=== PATIENT | male | born 1995 | race Caucasian/White ===

== ENCOUNTER 2017-07-14 18:53 | Emergency (ER) | payer OTHER ==
[2017-07-14] MEDS ORDERED: ONDANSETRON 4 MG/2 ML VIAL IVP ONE (19:49)
[2017-07-14] MEDS ORDERED: NS 1,000 ML IV ONE (19:50)
--- NOTE | 2017-07-14 20:04 | EDPHY ---
H & P Stated Complaint: N/V, ear ache. Time Seen by Provider: 07/14/17 19:53 HPI/ROS: CHIEF COMPLAINT: Nausea vomiting anxiety HISTORY OF PRESENT ILLNESS: Patient is a 21-year-old man who was driving down from [place] when he felt some pressure in his left ear and became dizzy and nauseous and vomited several times. He states that he thinks he was having anxiety that was causing his nausea. States that he vomited and had dry heaves constantly for 40 min. It then stopped. He does do marijuana daily but does not think this is contributing. He denies other drugs. He has not been on any medications. No fever. No sick contacts. No suspicious food. No abdominal pain. No diarrhea. REVIEW OF SYSTEMS: Constitutional: denies: chills, fever, recent illness, recent injury EENTM: See HPI denies: blurred vision, double vision Respiratory: denies: cough, shortness of breath Cardiac: denies: chest pain, irregular heart rate, lightheadedness, palpitations Gastrointestinal/Abdominal: See HPI Genitourinary: denies: dysuria, frequency, hematuria, pain Musculoskeletal: denies: joint pain, muscle pain Skin: denies: lesions, rash, jaundice, bruising Neurological: denies: headache, numbness, paresthesia, tingling, dizziness, weakness Hematologic/Lymphatic: denies: blood clots, easy bleeding, easy bruising Immunologic/allergic: denies: HIV/AIDS, transplant EXAM: GENERAL: Well-appearing, well-nourished and in no acute distress. HEAD: Atraumatic, normocephalic. EYES: Pupils equal round and reactive to light, extraocular movements intact, sclera anicteric, conjunctiva are normal. ENT: TMs with mild effusion, no erythema, nares patent, oropharynx clear without exudates. Moist mucous membranes. NECK: Normal range of motion, supple without lymphadenopathy or JVD. LUNGS: Breath sounds clear to auscultation bilaterally and equal. No wheezes rales or rhonchi. HEART: Regular rate and rhythm without murmurs, rubs or gallops. ABDOMEN: Soft, nontender, normoactive bowel sounds. No guarding, no rebound. No masses appreciated. BACK: No CVA tenderness, no spinal tenderness, step-offs or deformities EXTREMITIES: Normal range of motion, no pitting or edema. No clubbing or cyanosis. NEUROLOGICAL: Cranial nerves II through XII grossly intact. Normal speech, normal gait. 5/5 strength, normal movement in all extremities, normal sensation PSYCH: Normal mood, normal affect. SKIN: Warm, dry, normal turgor, no visible rashes or lesions. Source: Patient Exam Limitations: No limitations - Personal History Current Tetanus/Diphtheria Vaccine: Yes Current Tetanus Diphtheria and Acellular Pertussis (TDAP): Yes - Medical/Surgical History Hx Asthma: Yes Hx Chronic Respiratory Disease: No Hx Diabetes: No Hx Cardiac Disease: No Hx Renal Disease: No Hx Cirrhosis: No Hx Alcoholism: No Hx HIV/AIDS: No Hx Splenectomy or Spleen Trauma: No Other PMH: Asthma - Family History Significant Family History: No pertinent family hx - Social History Smoking Status: Never smoked Alcohol Use: Sober Drug Use: Marijuana Constitutional: Initial Vital Signs Temperature (C) 36.3 C 07/14/17 19:19 Heart Rate 57 L 07/14/17 19:19 Respiratory Rate 15 07/14/17 19:19 Blood Pressure 118/73 07/14/17 19:19 O2 Sat (%) 98 07/14/17 19:19 O2 Delivery Mode Room Air Allergies/Adverse Reactions: No Known Allergies Allergy (Unverified 07/14/17 19:23) Home Medications: Medication Instructions Recorded Adderall 10 mg Tablet 07/14/17 Ondansetron Odt [Zofran Odt 4 mg 4 mg PO Q4 PRN #20 tab 07/14/17 (RX)] Medical Decision Making ED Course/Re-evaluation: Patient is well appearing. No abdominal pain or tenderness. His vomiting is resolved with Zofran and is receiving IV fluids. We will continue to observe. He suspects that he had an anxiety attack and that this caused a cyclic type vomiting. Will hydrate re-evaluate. 8:45 p.m. the patient is feeling well. He is no longer nauseous. He has not vomited. His abdominal exam remains benign. He is eager to go home. I will send him with a take-home Zofran as well as a prescription. We also discussed decongestants [id number]. Differential Diagnosis: Partial list of the Differential diagnosis considered include but were not limited to; gastritis, food poisoning , cannabis hyperemesis, anxiety cyclic vomiting and although unlikely based on the history and physical exam, I also considered appendicitis, biliary disease, obstruction, gastroparesis. I discussed these differential diagnoses and the plan with the patient as well as the usual and expected course. The patient understands that the diagnosis is provisional and that in medicine we are not always correct and that further workup is often warranted. Usual and customary warnings were given. All of the patient's questions were answered. The patient was instructed to return to the emergency department should the symptoms at all worsen or return, otherwise to followup with the physician as we discussed. - Data Points Medications Given: Discontinued Medications Sodium Chloride (Ns) 1,000 mls @ 0 mls/hr IV ONCE ONE PRN Reason: Wide Open Stop: 07/14/17 19:51 Last Admin: 07/14/17 19:52 Dose: 1,000 mls Ondansetron HCl (Zofran) 4 mg IVP EDNOW ONE Stop: 07/14/17 19:50 Last Admin: 07/14/17 19:52 Dose: 4 mg Ondansetron HCl (Zofran Odt 4 Mg Prepack#2) 1 btl TAKEHOME EDNOW ONE Stop: 07/14/17 20:44 Last Admin: 07/14/17 20:52 Dose: 1 btl Departure - Departure Disposition: Home, Routine, Self-Care Clinical Impression: Anxiety, Cannabis abuse Vomiting Qualifiers: Vomiting type: unspecified Vomiting Intractability: non-intractable Nausea presence: with nausea Qualified Code(s): R11.2 - Nausea with vomiting, unspecified Condition: Fair Instructions: Ondansetron (By mouth), Acute Nausea and Vomiting (ED), Anxiety ( ED) Referrals: NONE *PRIMARY CARE P,. [Primary Care Provider] - As per Instructions Virginie King MD [Medical Doctor] - As per Instructions Prescriptions: Ondansetron Odt [Zofran Odt 4 mg (RX)] 4 mg PO Q4 PRN #20 tab PRN Reason: Nausea & Vomiting
[2017-07-14] MEDS ORDERED: ONDANSETRON 4MG PREPACK#2 BTL TAKEHOME ONE (20:43)
[2017-07-14 20:55] VITALS: BP 145/82; PULSE 55; RESP 16; TEMP 97.5; O2SAT 96
== END 2017-07-14 20:55 | disposition home or self-care (01) ==
DX: F41.9 Anxiety disorder, unspecified (principal); R11.2 Nausea with vomiting, unspecified; F12.10 Cannabis abuse, uncomplicated; J45.909 Unspecified asthma, uncomplicated
CPT/HCPCS: 96374; J2405